=== PATIENT | male | born 1970 | race African-American/Black ===

== ENCOUNTER 2017-03-24 19:02 | Emergency (ER) | payer OTHER ==
[~2017-03-24] VITALS: Ht 185.4 cm; Wt 100.0 kg
[2017-03-24] MEDS ORDERED: MAGNESIUM SULFATE 2 GM, MVI, ADULT NO.1 WITH VIT K 10 ML, THIAMINE HCL 100 MG, FOLIC AC... IV ONE ×5 (19:45)
[2017-03-24 19:52] LABS: GLUCOSE,POINT OF CARE 126 MG/DL (70-110)
[2017-03-24 20:34] LABS: BASOPHILS % (AUTO) 0.7 % (0.0-2.0); EOSINOPHILS % (AUTO) 0.7 % (1.0-6.0); HEMATOCRIT 39.7 % (41-53); HEMOGLOBIN 13.4 g/dL (13.5-17.5); LYMPHOCYTES # (AUTO) 1.1 K/uL (1.0-4.8); LYMPHOCYTES % (AUTO) 12.7 % (22.0-44.0); MEAN CORPUSCULAR HEMOGLOBIN 32.3 pg (26.0-34.0); MEAN CORPUSCULAR HGB CONC 33.8 G/dL (31.0-37.0); MEAN CORPUSCULAR VOLUME 95 fL (80-100); MONOCYTES # (AUTO) 0.4 K/uL (0.1-1.0); MONOCYTES % (AUTO) 4.2 % (2.0-9.0); NEUTROPHILS # (AUTO) 7.3 K/uL (1.8-7.7); NEUTROPHILS % (AUTO) 81.7 % (40.0-70.0); PLATELET COUNT (AUTO) 160 K/uL (150-450); RED BLOOD CELL COUNT(AUTO) 4.16 MIL/uL (4.50-5.90); RED CELL DISTRIBUTION WIDTH 14.6 % (11.5-14.5)
[2017-03-24 20:47] LABS: ANION GAP 11 mmol/L (8-16); CALCIUM, TOTAL 9.1 mg/dL (8.8-10.5); CARBON DIOXIDE 25 mmol/L (22-29); CHLORIDE 98 mmol/L (98-107); CREATININE 1.32 mg/dL (0.60-1.30); GLOMERULAR FILTR. RATE CALC > 60 mL/min (>60); GLUCOSE,RANDOM 119 mg/dL (70-110); POTASSIUM 4.3 mmol/L (3.5-5.1); SODIUM SERUM 134 mmol/L (136-145); UREA NITROGEN, BLOOD 14 mg/dL (7-18)
[2017-03-24 20:53] LABS: ALANINE AMINOTRANSFERASE 15 U/L (12-78); ALBUMIN 3.6 g/dL (3.4-5.0); ALKALINE PHOSPHATASE 128 U/L (46-116); ASPARTATE AMINOTRANSFERASE 27 U/L (15-37); BILIRUBIN,TOTAL 0.4 mg/dL (0.1-1.0); TOTAL PROTEIN, SERUM 8.4 g/dL (6.4-8.2)
[2017-03-24 22:29] LABS: AMPHET/METH SCREEN,URINE NEGATIVE (NEGATIVE); BARBITURATE SCREEN, URINE NEGATIVE (NEGATIVE); BENZODIAZEPINES SCREEN,URINE POSITIVE (NEGATIVE); CANNABINOID SCREEN,URINE POSITIVE (NEGATIVE); COCAINE SCREEN,URINE NEGATIVE (NEGATIVE); METHADONE SCREEN, URINE NEGATIVE (NEGATIVE); OPIATE SCREEN,URINE NEGATIVE (NEGATIVE)
[2017-03-24 22:30] VITALS: BP 152/95
[2017-03-24 22:31] LABS: PHENCYCLIDINE SCREEN,URINE NEGATIVE (NEGATIVE)
== END 2017-03-24 23:02 | disposition short-term general hospital (02) ==
LOC: EMS 19:05
DX: G40.89 Other seizures (principal); F10.239 Alcohol dependence with withdrawal, unspecified; Y90.0 Blood alcohol level of less than 20 mg/100 ml
CPT/HCPCS: 36415; 70450; 71045; 80053; 80307; 82948; 82962; 83735; 84484; 85025; 93005; 96365; 99291; G0480; J3411; J3475; J3490 ×2; J7030

== ENCOUNTER 2020-01-14 11:13 | Emergency (ER) | payer OTHER ==
[~2020-01-14] VITALS: Ht 172.7 cm; Wt 62.2 kg
[2020-01-14] MEDS ORDERED: IOVERSOL 350 MG/ML 100 ML VIAL ONE (11:28)
[2020-01-14] MEDS ORDERED: SODIUM CHLORIDE 0.9% 100 ML ONE (11:28)
[2020-01-14 11:41] LABS: BASOPHILS % (AUTO) 0.2 % (0.0-2.0); EOSINOPHILS % (AUTO) 0.1 % (1.0-6.0); HEMATOCRIT 33.6 % (41-53); HEMOGLOBIN 11.4 g/dL (13.5-17.5); LYMPHOCYTES # (AUTO) 0.8 K/uL (1.0-4.8); LYMPHOCYTES % (AUTO) 14.6 % (22.0-44.0); MEAN CORPUSCULAR HEMOGLOBIN 34.4 pg (26.0-34.0); MEAN CORPUSCULAR HGB CONC 33.9 G/dL (31.0-37.0); MEAN CORPUSCULAR VOLUME 101 fL (80-100); MONOCYTES # (AUTO) 0.2 K/uL (0.1-1.0); MONOCYTES % (AUTO) 4.3 % (2.0-9.0); NEUTROPHILS # (AUTO) 4.2 K/uL (1.8-7.7); NEUTROPHILS % (AUTO) 80.8 % (40.0-70.0); RED BLOOD CELL COUNT(AUTO) 3.31 MIL/uL (4.50-5.90); RED CELL DISTRIBUTION WIDTH 14.1 % (11.5-14.5)
[2020-01-14 11:58] LABS: ACETAMINOPHEN 9 mcg/mL (10-30); ALANINE AMINOTRANSFERASE 27 U/L (12-78); ALBUMIN 1.2 g/dL (3.4-5.0); ALKALINE PHOSPHATASE 216 U/L (46-116); ANION GAP 1 mmol/L (8-16); ASPARTATE AMINOTRANSFERASE 28 U/L (15-37); BILIRUBIN,TOTAL 0.2 mg/dL (0.1-1.0); CALCIUM, TOTAL 7.3 mg/dL (8.8-10.5); CARBON DIOXIDE 32 mmol/L (22-29); CHLORIDE 112 mmol/L (98-107); CREATININE 0.67 mg/dL (0.60-1.30); GLOMERULAR FILTR. RATE CALC > 60 mL/min (>60); GLUCOSE,RANDOM 78 mg/dL (70-110); SODIUM SERUM 145 mmol/L (136-145); TOTAL PROTEIN, SERUM 4.7 g/dL (6.4-8.2); UREA NITROGEN, BLOOD 10 mg/dL (7-18)
[2020-01-14 11:59] LABS: PLATELET COUNT (AUTO) 77 K/uL (150-450)
[2020-01-14] MEDS ORDERED: ASPIRIN 300 MG RECTAL SUPPOSITORY PR ONE (12:00)
[2020-01-14 12:01] LABS: INR 1.1 (0.9-1.1); PROTHROMBIN TIME 11.2 SEC (9.4-11.6)
[2020-01-14] MEDS ORDERED: OXYC-601 PO (12:03)
[2020-01-14 12:04] LABS: POTASSIUM 2.3 mmol/L (3.5-5.1)
[2020-01-14 12:12] LABS: SALICYLATE 4.7 mg/dL (2.8-20.0)
[2020-01-14] MEDS ORDERED: POTASSIUM CHL 10 MEQ/WATER 50 ML IV PRN (12:15)
[2020-01-14 12:39] LABS: COVID AG,FIA SOURCE NASOPHARYNGEAL
[2020-01-14 12:45] VITALS: BP 122/80
[2020-01-14] MEDS ORDERED: LevETIRAcetam 1,000 MG in DEXTROSE 5%-WATER 100 ML IV ONE (12:45)
[2020-01-14] MEDS ORDERED: HYDROCORTISONE SOD SUCC 100 MG/2 ML VIAL IVP ONE (12:45)
== END 2020-01-14 14:06 | disposition short-term general hospital (02) ==
LOC: EMS 11:13
DX: E87.6 Hypokalemia (principal); R47.1 Dysarthria and anarthria
CPT/HCPCS: 36415; 70450; 70496; 71045; 80053; 82962; 84484; 85025; 85610; 87426; 93005; 96365; 96366; 96368; 99291; G0480; J0712; J3480; J7050; J7060; Q9967; G0481

== ENCOUNTER 2020-09-27 18:34 | Emergency (ER) | payer OTHER ==
[~2020-09-27] VITALS: Ht 188 cm; Wt 70.5 kg
[~2020-09-27 18:34] MED LIST: OXYC-601 PO
[2020-09-27 18:45] VITALS: BP 120/101
== END 2020-09-27 18:50 | disposition left against medical advice (07) ==
LOC: EMS 18:39
DX: S81.812A Laceration without foreign body, left lower leg, initial encounter (principal); Z53.21 Procedure and treatment not carried out due to patient leaving prior to being seen by health care provider; W45.8XXA Other foreign body or object entering through skin, initial encounter; Y93.89 Activity, other specified; Y92.89 Other specified places as the place of occurrence of the external cause; Y99.8 Other external cause status